=== PATIENT | male | born 1945 | race Caucasian/White ===

== ENCOUNTER → 2023-11-07 10:26 | Outpatient (CLI) | payer MEDICARE, OTHER, SELFPAY | PROVIDERS: Family Provider Specialist; PCP Orthopaedic Surgery; Visit Provider Surgery | DX: N30.40 Irradiation cystitis without hematuria (principal); L59.8 Other specified disorders of the skin and subcutaneous tissue related to radiation; Y84.2 Radiological procedure and radiotherapy as the cause of abnormal reaction of the patient, or of later complication, without mention of misadventure at the time of the procedure; N48.89 Other specified disorders of penis | CPT/HCPCS: 99183; G0277 ==

== ENCOUNTER → 2023-11-08 10:33 | Outpatient (CLI) | payer MEDICARE, OTHER, SELFPAY | PROVIDERS: Family Provider Specialist; PCP Orthopaedic Surgery; Referring Provider Registered Nurse; Visit Provider Surgery | DX: N30.40 Irradiation cystitis without hematuria (principal); L59.8 Other specified disorders of the skin and subcutaneous tissue related to radiation; Y84.2 Radiological procedure and radiotherapy as the cause of abnormal reaction of the patient, or of later complication, without mention of misadventure at the time of the procedure; N48.89 Other specified disorders of penis | CPT/HCPCS: 99183; G0277 ==

== ENCOUNTER → 2023-11-09 13:25 | Outpatient (CLI) | payer MEDICARE, OTHER, SELFPAY | PROVIDERS: Family Provider Specialist; PCP Orthopaedic Surgery; Visit Provider Surgery | DX: N30.40 Irradiation cystitis without hematuria (principal); L59.8 Other specified disorders of the skin and subcutaneous tissue related to radiation; Y84.2 Radiological procedure and radiotherapy as the cause of abnormal reaction of the patient, or of later complication, without mention of misadventure at the time of the procedure; N48.89 Other specified disorders of penis | CPT/HCPCS: 99183; G0277 ==